=== PATIENT | male | born 1955 | race Caucasian/White ===

== ENCOUNTER 2017-05-10 14:18 | Outpatient (CLI) | payer BC, OTHER ==
--- NOTE | 2017-05-10 15:07 | RAD ---
LEFT ELBOW FOUR VIEWS: History: N25.522 elbow pain, redness and swelling. Comparison: None. FINDINGS: There is soft tissue edema and swelling over the olecranon bursa. 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 No significant elbow joint effusion. No acute fracture or malalignment. Surgical c lips anterior forearm. IMPRESSION: 1. Chronic changes. No acute abnormality. 2. Findings suggestive of olecranon bursitis. 3. No joint effusion of the elbow. POS: [facility]
--- NOTE | 2017-05-10 15:08 | RAD ---
LUMBAR SPINE THREE VIEWS: History: Back pain. FINDINGS: Degenerative changes are present. No fracture, subluxation, or bony destruction is identified. IMPRESSION: Lumbar spondylosis. POS: [facility]
[2017-05-10 15:20] LABS: #Basophils 0.2 thou/uL (0.0-0.2); #Eosinphils 0.2 thou/uL (0.0-0.7); #Lymphocytes 1.5 thou/uL (1.20-3.40); #Monocytes 0.7 thou/uL (0.11-0.59); #Neutrophils 7.9 thou/uL (1.40-6.50); %Basophils 1.7 % (0.0-1.0); %Eosinophils 1.9 % (0.0-10.0); %Neutrophils 75.5 % (42.0-75.0); Mean Corpuscular HGB CONC 33.3 g/dL (32.0-36.0); Mean Corpuscular Hemoglobin 29.7 pg (27.0-31.0); Mean Corpuscular Volume 88.9 fl (80.0-94.0); Platelet Count 328 thou/uL (130-400); RBC Distribution Width 11.3 % (11.5-14.5); Red Blood Cell (RBC) Count 5.41 mill/uL (4.70-6.10); White Blood Cell (WBC) Count 10.4 thou/uL (4.8-10.8)
== END 2017-05-10 14:19 | disposition home or self-care (01) ==
LOC: SCSRAD 14:18
PROVIDERS: ATTEND Family Medicine
DX: M25.522 Pain in left elbow (principal); M54.5 Low back pain; M47.896 Other spondylosis, lumbar region
CPT/HCPCS: 36415; 72100; 84550; 85025

== ENCOUNTER 2019-03-26 08:01 | Outpatient (CLI) | payer BC ==
--- NOTE | 2019-03-26 10:59 | CT ---
CT ABDOMEN AND PELVIS WITH IV CONTRAST: INDICATIONS: Periumbilical pain. Epigastric pain. COMPARISON: None. FINDINGS: The lung base is clear. The liver, spleen and pancreas appear unremarkable. Review of the stomach shows possible small sliding diaphragmatic hernia. Mild gaseous distention of t he distal esophagus. There is mild mural thickening in the region of the cardia and upper gastric fun dus, possibly due to nondistention, although endoscopy may be of benefit to evaluate the mucosa in th is region if this has not been previously performed. Gastric antrum and duodenum appear unremarkable. Adrenal glands are normal. Kidneys are unremarkable. Urinary bladder is unremarkable. The small bowel loops appear normal. The colon is unremarkable. The appendix appears normal. Stool th roughout the colon. Aorta normal caliber with atherosclerotic changes. No adenopathy. Images through the patient pelvis show mild prostatic hypertrophy. Small umbilical hernia. IMPRESSION: 1. Evidence of small sliding diaphragmatic hernia. 2. Mural thickening in the upper stomach at the cardia of uncertain significance. 3. Small umbilical hernia. POS: [facility]
== END 2019-03-26 08:02 | disposition home or self-care (01) ==
LOC: BICCT 08:01
PROVIDERS: ATTEND Internal Medicine Gastroenterology
DX: Z12.11 Encounter for screening for malignant neoplasm of colon (principal); R10.33 Periumbilical pain; K21.9 Gastro-esophageal reflux disease without esophagitis; K44.9 Diaphragmatic hernia without obstruction or gangrene; K42.9 Umbilical hernia without obstruction or gangrene; K31.89 Other diseases of stomach and duodenum
CPT/HCPCS: 74177; 82565